=== PATIENT | male | born 1975 | race Caucasian/White ===

== ENCOUNTER 2018-09-10 18:42 | Emergency (ER) | payer SELFPAY ==
[2018-09-10 18:44] VITALS: BP 156/89; PULSE 109; RESP 18; TEMP 36.6; O2SAT 99; BMI 26.4
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
[2018-09-10] MEDS: Diphth,Pertuss(Acell),Tet Vac 0.5 ML Vial IM (19:07)
--- NOTE | 2018-09-10 20:25 | ED.DEP ---
ED Disposition - Plan for ED Patient: Chief Complaint: Laceration Instructions: ED Laceration All Referrals: Patrick Hartman MD [STAFF PHYSICIAN] -
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
== END 2018-09-10 21:56 | disposition home or self-care (01) ==
PROVIDERS: Emergency Provider Emergency Medicine
DX: S01.112A Laceration without foreign body of left eyelid and periocular area, initial encounter (principal); Y04.0XXA Assault by unarmed brawl or fight, initial encounter; Y93.9 Activity, unspecified; Y92.9 Unspecified place or not applicable; Y99.9 Unspecified external cause status; Z23 Encounter for immunization; Z72.0 Tobacco use
CPT/HCPCS: 12011; 90471; 90715; 99283